=== PATIENT | male | born 1955 | race Caucasian/White ===

== ENCOUNTER 2019-03-20 10:21 | Emergency (ER) | payer BC ==
[2019-03-20 11:04] VITALS: BP 131/87
--- NOTE | 2019-03-20 11:57 | UC ---
Throat Pain/Nasal Jeremy HPI - HPI Summary HPI Summary: Patient is a 63 yo male presenting with intermittent R ear pain and dizziness x6 weeks. Patient states he is concerned for an ear infection. Also notes that his "scalp feels like it is on tight." Patient states dizziness is becoming worse, stating it now wakes him up at night. Notes horizontal nystagmus that lasts only a few seconds a couple times a day with change in position from lying down to standing up usually. Also notes R sided sore throat and PND. Patient denies anything like this in the past. Note taking flonase and ibuprofen with some relief. Denies history of environmental allergies. - History of Current Complaint Chief Complaint: UCGeneralIllness Stated Complaint: EAR PAIN, SORE THROAT Hx Obtained From: Patient Onset/Duration: Gradual Onset, Lasting Weeks Pain Intensity: 0 - Allergies/Home Medications Allergies/Adverse Reactions: Allergies Allergy/AdvReac Type Severity Reaction Status Date / Time niacin Allergy Hives Verified 03/20/19 11:05 PMH/Surg Hx/FS Hx/Imm Hx Endocrine History: Dyslipidemia GI/ History: Gastroesophageal Reflux - Surgical History Surgical History: Yes Surgery Procedure, Year, and Place: retina detachement surgery 3 weeks ago - Family History Known Family History: Positive: Unknown - Social History Alcohol Use: Occasionally Substance Use Type: Marijuana Substance Use Comment - Amount & Last Used: ocassionally Smoking Status (MU): Never Smoked Tobacco Review of Systems All Other Systems Reviewed And Are Negative: Yes Constitutional: Positive: Negative. Negative: Fever, Chills, Fatigue ENT: Positive: Sore Throat, Ear Ache - R ear, Nasal Discharge - PND. Negative: Sinus Congestion, Sinus Pain/Tenderness Respiratory: Positive: Negative. Negative: Shortness Of Breath, Cough Cardiovascular: Positive: Negative. Negative: Palpitations, Chest Pain Gastrointestinal: Positive: Negative. Negative: Abdominal Pain, Vomiting, Diarrhea, Nausea Motor: Positive: Negative Musculoskeletal: Positive: Negative Neurological: Positive: Headache, Other - Vertigo Physical Exam Triage Information Reviewed: Yes Appearance: Well-Appearing, No Pain Distress, Well-Nourished Vital Signs: Initial Vital Signs Temp 98.0 F 03/20/19 10:59 Pulse 72 03/20/19 10:59 Resp 18 03/20/19 10:59 BP 131/87 03/20/19 10:59 Pulse Ox 100 03/20/19 10:59 Vital Signs Reviewed: Yes Eyes: Positive: Conjunctiva Clear, Other: - PERRLA. EOM intact ENT: Positive: Hearing grossly normal, Pharynx normal, TMs normal, Uvula midline. Negative: Nasal congestion, Nasal drainage, TM bulging, TM dull, TM red, Tonsillar swelling, Tonsillar exudate, Trismus, Muffled voice, Hoarse voice , Sinus tenderness Neck exam: Normal Neck: Positive: Supple, Nontender, No Lymphadenopathy Respiratory Exam: Normal Respiratory: Positive: Lungs clear, Normal breath sounds, No respiratory distress Cardiovascular Exam: Normal Cardiovascular: Positive: RRR Neurological Exam: Other - cranial nerves II-XII intact Neurological: Positive: Alert Psychological: Positive: Age Appropriate Behavior Throat Pain/Nasal Course/Dx - Course Course Of Treatment: Patient VS normal and PE findings normal, including no signs of ear infection. Patient not experiencing vertigo or any dizziness during visit. Patient's description of symptoms correlate well with BPPV. I instructed the patient to take meclizine [id number] to help her leave symptoms and informed him that usually will resolve on their own. I provided him with referral for ENT or instructed him that he may follow up with his PCP for further evaluation if symptoms worsen or do not resolve within the next couple weeks. Patient voiced understanding and agreed with the treatment plan. - Differential Dx/Diagnosis Provider Diagnosis: BPPV (benign paroxysmal positional vertigo) Discharge ED - Sign-Out/Discharge Documenting (check all that apply): Patient Departure All imaging exams completed and their final reports reviewed: No Studies - Discharge Plan Condition: Stable Disposition: HOME Patient Education Materials: Benign Paroxysmal Positional Vertigo (ED) Referrals: Yair Flores MD [Medical Doctor] - If Needed Additional Instructions: As discussed, your symptoms are consistent with Benign Paroxysmal Positional Vertigo. You may take Meclizine over the counter to help alleviate symptoms, but symptoms often resolve on their own. You may continue to take ibuprofen as directed for pain relief. Follow-up with your PCP or the ENT referral listed below for further evaluation if symptoms persist. - Billing Disposition and Condition Condition: STABLE Disposition: Home
== END 2019-03-20 12:17 | disposition home or self-care (01) ==
LOC: UCCORT 10:21
DX: H81.11 Benign paroxysmal vertigo, right ear (principal); H92.01 Otalgia, right ear; R51 Headache; J02.9 Acute pharyngitis, unspecified; R09.82 Postnasal drip; Z88.8 Allergy status to other drugs, medicaments and biological substances
CPT/HCPCS: 99211; G0463